=== PATIENT | male | born 1950 | race American Indian/Alaskan Native ===

== ENCOUNTER 2016-12-14 11:09 | Outpatient (CLI) | payer MEDICARE ==
[2016-12-14 11:42] LABS: Hematocrit 36.4 % (35.5-45.6); Hemoglobin 11.9 gm/dl (11.8-15.2); Mean Corpuscular HGB Conc 33 % (32-34); Mean Corpuscular Hemoglobin 29 pg (28-32); Mean Corpuscular Volume 89 fl (84-94); Platelet Count 192 K/mm3 (140-440); Red Blood Count 4.11 M/mm3 (3.65-5.03); Red Cell Distribution Width 13.3 % (13.2-15.2); White Blood Count 4.5 K/mm3 (4.5-11.0)
[2016-12-14 11:55] LABS: Albumin 3.7 g/dL (3.9-5); BUN/Creatinine Ratio 14.54; Blood Urea Nitrogen 16 mg/dL (9-20); Calcium 9.3 mg/dL (8.4-10.2); Carbon Dioxide 20 mmol/L (22-30); Glucose 231 mg/dL (75-100); Uric Acid 8.9 mg/dL (3.5-7.6)
[2016-12-14 11:56] LABS: Anion Gap 20 mmol/L; Chloride 105.9 mmol/L (98-107); Potassium 4.1 mmol/L (3.6-5.0); Sodium 142 mmol/L (137-145)
[2016-12-15 16:43] LABS: Vitamin D, 25-OH, Total 33 ng/mL (30-100)
== END 2016-12-14 11:10 | disposition home or self-care (01) ==
LOC: LAB 11:09
PROVIDERS: ATTEND Internal Medicine Nephrology
DX: E11.22 Type 2 diabetes mellitus with diabetic chronic kidney disease (principal); N18.3 Chronic kidney disease, stage 3 (moderate); M10.09 Idiopathic gout, multiple sites
CPT/HCPCS: 36415; 80048; 82040; 82306; 83970; 84100; 84550; 85027; 86038; 86803; 87350